=== PATIENT | male | born 1985 | race Asian ===

== ENCOUNTER 2016-10-27 11:10 | Inpatient (IN) | payer OTHER ==
[~2016-10-27] VITALS: Ht 160 cm; Wt 61.3 kg
[2016-10-27 12:26] LABS: BASOPHIL % 0.3 % (0-2); PLATELET COUNT 323 x10^3mcL (130-400); RED CELL DISTRIBUTION WIDTH 13.1 % (11.5-14.5)
[2016-10-27 12:34] LABS: CALCIUM 8.9 mg/dL (8.5-10.1); CARBON DIOXIDE 29.3 mmol/L (21-32); CHLORIDE SERUM 102 mmol/L (98-107); CREATININE SERUM 0.9 mg/dL (0.7-1.3); GFR1 > 60 mL/min; GLUCOSE SERUM 108 mg/dL (74-106); POTASSIUM SERUM 4.2 mmol/L (3.5-5.1); SODIUM SERUM 139 mmol/L (136-145)
[2016-10-27 12:38] LABS: ALKALINE PHOSPHATASE 106 U/L (46-116); ALT/SGPT 33 U/L (16-63); AMYLASE 44 U/L (25-115); AST/SGOT 14 U/L (15-37); BILIRUBIN TOTAL 0.6 mg/dL (0.20-1.00); LIPASE 107 IU/L (73-393); TOTAL PROTEIN, SERUM 8.1 g/dL (6.4-8.2)
[2016-10-27 14:28] LABS: microscopic required? NO
[2016-10-27 14:51] LABS: T3 TOTAL 0.85 ng/mL
[2016-10-27 14:54] LABS: FREE T4 1.07 ng/dL (0.76-1.46); FREE THYROXINE INDEX 2.8 ug/dL (1.4-4.5)
[2016-10-27 15:05] LABS: CHOLESTEROL/HDL RATIO 3.7
[2016-10-27 15:11] LABS: UA SPECIFIC GRAVITY <=1.005 (1.005-1.035); urine erythrocyte NEGATIVE (NEGATIVE)
[2016-10-27 15:17] LABS: MAGNESIUM 2.2 mg/dL (1.8-2.4); PHOSPHOROUS 3.8 mg/dL (2.5-4.9)
[2016-10-27 15:19] LABS: AMPHETAMINE QUAL UR NONE DETECTED (NEG <=1000)
[2016-10-27 18:10] VITALS: BP 121/71
[2016-10-27 21:08] VITALS: BP 116/62
[2016-10-28 06:02] VITALS: BP 110/59
[2016-10-28 06:07] LABS: BASOPHIL % 0.4 % (0-2); PLATELET COUNT 280 x10^3mcL (130-400); RED CELL DISTRIBUTION WIDTH 13.4 % (11.5-14.5)
[2016-10-28 06:36] LABS: CARBON DIOXIDE 26.5 mmol/L (21-32); CHLORIDE SERUM 105 mmol/L (98-107); CREATININE SERUM 0.7 mg/dL (0.7-1.3); GFR1 > 60 mL/min; GLUCOSE SERUM 94 mg/dL (74-106); POTASSIUM SERUM 3.7 mmol/L (3.5-5.1); SODIUM SERUM 139 mmol/L (136-145)
[2016-10-28 09:52] VITALS: BP 107/61
[2016-10-28 10:20] VITALS: Ht 160 cm; Wt 61.3 kg
[2016-10-28 13:29] VITALS: BP 104/55
[2016-10-28 17:25] VITALS: BP 109/62
[2016-10-28 21:01] VITALS: BP 110/54
[2016-10-29 05:19] VITALS: BP 117/66
[2016-10-29 06:09] LABS: BASOPHIL % 0.4 % (0-2); PLATELET COUNT 274 x10^3mcL (130-400); RED CELL DISTRIBUTION WIDTH 13.4 % (11.5-14.5)
[2016-10-29 06:18] LABS: CALCIUM 8.4 mg/dL (8.5-10.1); CHLORIDE SERUM 107 mmol/L (98-107); CREATININE SERUM 0.8 mg/dL (0.7-1.3); GFR1 > 60 mL/min; GLUCOSE SERUM 87 mg/dL (74-106); MAGNESIUM 2.3 mg/dL (1.8-2.4); PHOSPHOROUS 3.6 mg/dL (2.5-4.9); POTASSIUM SERUM 3.6 mmol/L (3.5-5.1); SODIUM SERUM 142 mmol/L (136-145)
[2016-10-29 09:07] VITALS: BP 122/67
[2016-10-29] MEDS ORDERED: COL250 PO (09:28)
[2016-10-29] MEDS ORDERED: GAS RELIEF80 MG CH (10:30)
[2016-10-29] MEDS ORDERED: APAP/HYDROCODON1 T13 PO (11:40)
[2016-10-29 12:39] VITALS: BP 122/67
== END 2016-10-29 13:59 | disposition home or self-care (01) | DRG 225 ==
LOC: ED 11:10 → DU 14:02 → MU 10-28 09:36
PROVIDERS: Emergency Medicine; Family Medicine; Surgery; ADMIT Family Medicine
PROC: 0DTJ4ZZ Resection of Appendix, Percutaneous Endoscopic Approach (ICD-10-PCS; principal; 2016-10-27 15:30)
DX: K37 Unspecified appendicitis (principal); E44.0 Moderate protein-calorie malnutrition; K40.90 Unilateral inguinal hernia, without obstruction or gangrene, not specified as recurrent
CPT/HCPCS: 80307; 83880; 84439; 94150; J0330; J1885; J2250; J2270; J2405; J2543; J2704; J2710; J3010; J3490; J7030; J7120